=== PATIENT | male | born 1975 | race African-American/Black ===

== ENCOUNTER 2019-10-23 12:51 | Inpatient (IN) ==
[2019-10-23] MEDS ORDERED: BISACODYL 5 MG TABLET PO PRN (13:37)
[2019-10-23] MEDS ORDERED: PROMETHAZINE 25 MG/1 ML VIAL IM PRN (13:37)
[2019-10-23] MEDS ORDERED: hydrALAZINE 20 MG/1 ML VIAL IV PRN (13:37)
[2019-10-23] MEDS ORDERED: ACETAMINOPHEN 325 MG TABLET PO PRN (13:37)
[2019-10-23] MEDS ORDERED: SIMETHICONE CHEW 125 MG TABLET PO PRN (13:37)
[2019-10-23] MEDS ORDERED: rOPINIRole 1 MG TABLET PO PRN (13:40)
[2019-10-23] MEDS ORDERED: cloNIDine 0.1 MG TABLET PO PRN (13:40)
[2019-10-23] MEDS ORDERED: SODIUM CHLORIDE 0.9% 1,000 ML IV SCH (14:00)
[2019-10-23 14:01] LABS: Basophils # 0.1 10*3/uL (0.0-0.2); Basophils % 1.2 % (0.0-0.8); Eosinophils # 0.1 10*3/uL (0.0-0.87); Eosinophils % 2.3 % (0.00-10.9); Hematocrit 37.9 VOL% (42.0-52.0); Hemoglobin 11.5 GM/DL (14.0-18.0); Immature Granulocytes % 0.2 %; Immature Granulocytes Absolute 0.01 #; Lymphocytes # 2.3 10*3/uL (1.4-4.0); Lymphocytes % 44.8 % (21.2-54.2); Mean Corpuscular HGB Conc 30.3 GM/DL (32-36); Mean Corpuscular Volume 87.5 FL (87-102); Mean Platelet Volume 10.9 FL (9.6-12.0); Monocytes % 8.4 % (1.7-12.7); Neutrophils % 43.1 % (38.7-73.9); Platelet Count 222 T/CUMM (130-400); Red Blood Count 4.33 MC/CUMM (3.8-5.5); Red Cell Distribution Width 14.4 % (9.3-17.3); White Blood Count 5.1 T/CUMM (4-12)
[2019-10-23 14:22] LABS: Albumin 2.9 G/DL (3.4-5.0); Bilirubin,Total 0.4 MG/DL (0.2-1.0); Calcium 8.8 MG/DL (8.5-10.1); Osmolality,Calculated 273.8 MOS/KG (273-304); Total Protein 7.5 G/DL (6.4-8.3)
[2019-10-23 14:34] LABS: Thyroid Stimulating Hormone 0.794 uIU/ml (0.358-3.74)
[2019-10-23] MEDS ORDERED: POTASSIUM CHLORIDE 20 MEQ TABLET PO ONE (15:25)
[2019-10-23] MEDS ORDERED: SODIUM CHLOR 0.9% KCL 40 MEQ 40 MEQ/1,000 ML BAG IV SCH (15:30)
[2019-10-23] MEDS: BUPRENORPHINE SL TAB 2 MG TABLET SL SCH (17:56)
[2019-10-23] MEDS: ENOXAPARIN 40 MG/0.4 ML SYRINGE SUBCUT SCH (20:22)
[2019-10-23] MEDS: HydrOXYzine PAMOATE 25 MG CAPSULE PO PRN (22:42)
[2019-10-23] MEDS: DICYCLOMINE 10 MG CAPSULE PO PRN (22:42)
[2019-10-23] MEDS: METHOCARBAMOL 750 MG TABLET PO PRN (22:42)
[2019-10-23] MEDS: ONDANSETRON 4 MG/2 ML VIAL IV PRN (22:42)
[2019-10-24] MEDS: BUPRENORPHINE SL TAB 2 MG TABLET SL SCH ×3 (01:47→17:33)
[2019-10-24] MEDS: HydrOXYzine PAMOATE 25 MG CAPSULE PO PRN ×2 (05:02→19:44)
[2019-10-24 06:39] LABS: Calcium 8.6 MG/DL (8.5-10.1); Osmolality,Calculated 276.5 MOS/KG (273-304)
[2019-10-24] MEDS: DICYCLOMINE 10 MG CAPSULE PO PRN (17:33)
[2019-10-24] MEDS: ONDANSETRON 4 MG/2 ML VIAL IV PRN (17:34)
[2019-10-24] MEDS: METHOCARBAMOL 750 MG TABLET PO PRN (19:45)
[2019-10-24] MEDS: diphenhydrAMINE CAP 25 MG CAPSULE PO PRN (19:45)
[2019-10-24] MEDS: ENOXAPARIN 40 MG/0.4 ML SYRINGE SUBCUT SCH ×2 (19:45→20:32)
[2019-10-25] MEDS: METHOCARBAMOL 750 MG TABLET PO PRN ×3 (01:37→20:45)
[2019-10-25] MEDS: BUPRENORPHINE SL TAB 2 MG TABLET SL SCH ×3 (01:37→17:34)
[2019-10-25] MEDS: diphenhydrAMINE CAP 25 MG CAPSULE PO PRN ×2 (01:37→20:45)
[2019-10-25] MEDS: DICYCLOMINE 10 MG CAPSULE PO PRN ×2 (01:37→20:45)
[2019-10-25] MEDS: HydrOXYzine PAMOATE 25 MG CAPSULE PO PRN (13:54)
[2019-10-25] MEDS: ENOXAPARIN 40 MG/0.4 ML SYRINGE SUBCUT SCH (20:47)
[2019-10-26] MEDS: METHOCARBAMOL 750 MG TABLET PO PRN ×2 (05:41→20:34)
[2019-10-26] MEDS: BUPRENORPHINE SL TAB 2 MG TABLET SL SCH (05:41)
[2019-10-26] MEDS: CETIRIZINE 10 MG TABLET PO SCH (15:13)
[2019-10-26] MEDS: carvediloL 12.5 MG TABLET PO SCH (15:13)
[2019-10-26] MEDS: APIXABAN 5 MG TABLET PO SCH ×2 (15:13→20:34)
[2019-10-26] MEDS: LOSARTAN 25 MG TABLET PO SCH (15:13)
[2019-10-26] MEDS: DIAZEPAM 5 MG TABLET PO SCH ×2 (15:13→20:33)
[2019-10-26] MEDS: FUROSEMIDE 20 MG TABLET PO SCH (15:14)
[2019-10-26] MEDS: TRIAMCINOLONE 0.1% CREAM 15 GM TUBE TOP SCH ×2 (15:17→20:35)
[2019-10-26] MEDS: HydrOXYzine PAMOATE 25 MG CAPSULE PO PRN (19:10)
[2019-10-26 19:34] LABS: Apearance,Urine Slightly Hazy (Clear); Bacteria,Urine Occasional /HPF (Few); Bilirubin,Urine Negative (Negative); Blood, Urine Negative (Negative); Glucose,Urine (UA) Negative (Negative); Ketones,Urine Negative (Negative); Mucus,Urine Many /LPF (Occasional); Nitrite,Urine Negative (Negative); Protein,Urine Negative; Sperm,Urine Occasional /HPF (Negative); Squamous Epithelial Cell,Urine Occasional /HPF (0-10); Urine Color Yellow (Yellow); Urine Specific Gravity 1.016 (1.001-1.035); WBC,Urine 11 /HPF (0-6)
[2019-10-27] MEDS: CETIRIZINE 10 MG TABLET PO SCH (08:51)
[2019-10-27] MEDS: DIAZEPAM 5 MG TABLET PO SCH (08:51)
[2019-10-27] MEDS: APIXABAN 5 MG TABLET PO SCH (08:51)
[2019-10-27] MEDS: FUROSEMIDE 20 MG TABLET PO SCH (08:51)
[2019-10-27] MEDS: LOSARTAN 25 MG TABLET PO SCH (08:51)
[2019-10-27] MEDS: carvediloL 12.5 MG TABLET PO SCH (08:51)
[2019-10-27] MEDS: TRIAMCINOLONE 0.1% CREAM 15 GM TUBE TOP SCH (08:52)
[2019-10-27 12:48] VITALS: BP 137/89
== END 2019-10-27 13:30 | disposition home or self-care (01) | DRG 772 ==
LOC: N.4E 13:26 → SUATTDRO 13:26
PROVIDERS: ADMIT Internal Medicine; ATTEND Internal Medicine